=== PATIENT | female | born 1990 | race Caucasian/White ===

== ENCOUNTER → 2023-12-07 06:27 | Day surgery (SDC) | payer BC, SELFPAY | LOC: GI 06:27 | PROVIDERS: ATTENDING PHYSICIAN Internal Medicine; FAMILY PHYSICIAN Physician Assistant Medical | DX: D12.3 Benign neoplasm of transverse colon (principal); K62.5 Hemorrhage of anus and rectum; K63.5 Polyp of colon; K64.4 Residual hemorrhoidal skin tags; Z87.19 Personal history of other diseases of the digestive system | CPT/HCPCS: 45380; 88305 ==

== ENCOUNTER → 2024-07-10 14:48 | Outpatient (REF) | payer BC, SELFPAY | LOC: PNTC 14:48 | PROVIDERS: ATTENDING PHYSICIAN Obstetrics & Gynecology | DX: O99.210 Obesity complicating pregnancy, unspecified trimester (principal); O10.019 Pre-existing essential hypertension complicating pregnancy, unspecified trimester; O35.5XX0 Maternal care for (suspected) damage to fetus by drugs, not applicable or unspecified | CPT/HCPCS: 76805 ==

== ENCOUNTER → 2024-08-15 07:51 | Outpatient (REF) | payer BC, SELFPAY ==
--- NOTE | 2024-08-15 07:57 | PN.DIAED06 ---
Meal Plan - Gestational
- Breakfast
Gestational Diabetes Meal Plan Name: 1800 calories
Breakfast - Total Carbohydrate (grams): 30
Breakfast - Starch Carbohydrate: 1
Breakfast - Fruit Carbohydrate: 0
Breakfast - Milk Carbohydrate: 1
Breakfast - Nonstarchy Vegetables: Yes
Breakfast - Meat/Protein: 1
Breakfast - Fat: 2
- Morning Snack
Morning Snack - Total Carbohydrate (grams): 30
Morning Snack - Starch Carbohydrate: 1
Morning Snack - Fruit Carbohydrate: 0
Morning Snack - Milk Carbohydrate: 1
Morning Snack - Nonstarchy Vegetables: Yes
Morning Snack - Meat/Protein: 0.5
Morning Snack - Fat: 0
- Lunch
Lunch - Total Carbohydrate (grams): 45
Lunch - Starch Carbohydrate: 2
Lunch - Fruit Carbohydrate: 1
Lunch - Milk Carbohydrate: 0
Lunch - Nonstarchy Vegetables: Yes
Lunch - Meat/Protein: 2
Lunch - Fat: 1
- Afternoon Snack
Afternoon Snack - Total Carbohydrate (grams): 30
Afternoon Snack - Starch Carbohydrate: 1
Afternoon Snack - Fruit Carbohydrate: 1
Afternoon Snack - Milk Carbohydrate: 0
Afternoon Snack - Nonstarchy Vegetables: Yes
Afternoon Snack - Meat/Protein: 1
Afternoon Snack - Fat: 0
- Dinner
Dinner - Total Carbohydrate (grams): 45
Dinner - Starch Carbohydrate: 2
Dinner - Fruit Carbohydrate: 0
Dinner - Milk Carbohydrate: 1
Dinner - Nonstarchy Vegetables: Yes
Dinner - Meat/Protein: 2
Dinner - Fat: 2
- Evening Snack
Evening Snack - Total Carbohydrate (grams): 30
Evening Snack - Starch Carbohydrate: 1
Evening Snack - Fruit Carbohydrate: 0
Evening Snack - Milk Carbohydrate: 1
Evening Snack - Nonstarchy Vegetables: Yes
Evening Snack - Meat/Protein: 1
Evening Snack - Fat: 1
--- NOTE | 2024-08-15 15:28 | PN.DE ---
Diabetes Education
- -
Met with Ms. Benitez today, currently at 22 weeks of gestation, here today for medical nutrition therapy.
Explained glucose metabolism in body and what occurs during to cause increase blood sugar. Discussed importance of keeping BS well controlled to avoid complications to the baby during and after (macrosomia, hypoglycemia).
Explained to Irlanda that she is at increased risk of developing T2DM in the future.
Irlanda brought with her the OneTouch glucose meter that was recently rx and she has already started monitoring her blood sugars at home. Reviewed instructions on proper testing technique, testing sites and testing pattern given. She is aware to test
FBS and 2 hr pp each meal. Expected results for FBS <95 mg/dl and 2 hr pp <120 mg/dl. She is aware if testing 1 hr pp, result should be <140 mg/dl. Noted for blood sugar of 88 fasting this morning.
A Log sheet was provided for her to record results, she will send a 4 day meal log with all her FBG and 2hr Post prandial glucose numbers to this office for review.
In addition, she will send all her glucose readings to Imani at [facility] every Sunday.
Discussed macronutrients, provided with 1800 gabby GDM meal plan, she has a good understanding of healthy nutrition and has been eating healthy since finding out that she has GDM with this as well. She has been educated on how to read a
nutritional fact label and look at total CHO in relation to serving size. No fruit or fruit juice until noontime. Provided with handout on snacks as well as 'Choose Your Foods' booklet. Encouraged exercise and increase physical activity during
and encouraged her to reach out should she have any questions or require insulin as her progresses.
== END ==
LOC: DES 07:51
PROVIDERS: ATTENDING PHYSICIAN Obstetrics & Gynecology
DX: O24.419 Gestational diabetes mellitus in pregnancy, unspecified control (principal)
CPT/HCPCS: 99078

== ENCOUNTER → 2024-08-21 08:50 | Outpatient (REF) | payer BC, SELFPAY | LOC: PNTC 08:50 | PROVIDERS: ATTENDING PHYSICIAN Student in an Organized Health Care Education/Training Program | DX: O24.419 Gestational diabetes mellitus in pregnancy, unspecified control (principal) | CPT/HCPCS: 76815 ==

== ENCOUNTER → 2024-08-26 13:49 | Outpatient (REF) | payer BC, SELFPAY | LOC: PNTC 13:49 | PROVIDERS: ATTENDING PHYSICIAN Obstetrics & Gynecology | DX: O24.419 Gestational diabetes mellitus in pregnancy, unspecified control (principal) | CPT/HCPCS: 76811 ==

== ENCOUNTER → 2024-09-23 07:00 | Outpatient (REF) | payer BC, SELFPAY | LOC: PNTC 07:00 | PROVIDERS: ATTENDING PHYSICIAN Obstetrics & Gynecology | DX: O99.210 Obesity complicating pregnancy, unspecified trimester (principal); O16.9 Unspecified maternal hypertension, unspecified trimester; O24.419 Gestational diabetes mellitus in pregnancy, unspecified control; Q27.0 Congenital absence and hypoplasia of umbilical artery | CPT/HCPCS: 76816 ==

== ENCOUNTER → 2024-10-27 16:41 | Outpatient (REF) | payer BC, SELFPAY | LOC: PNTC 16:41 | PROVIDERS: ATTENDING PHYSICIAN Obstetrics & Gynecology | DX: O99.210 Obesity complicating pregnancy, unspecified trimester (principal); O16.9 Unspecified maternal hypertension, unspecified trimester; O24.419 Gestational diabetes mellitus in pregnancy, unspecified control; O69.5XX0 Labor and delivery complicated by vascular lesion of cord, not applicable or unspecified | CPT/HCPCS: 59025; 76816 ==

== ENCOUNTER → 2024-11-03 07:08 | Outpatient (REF) | payer BC, SELFPAY | LOC: PNTC 07:08 | PROVIDERS: ATTENDING PHYSICIAN Obstetrics & Gynecology | DX: O99.210 Obesity complicating pregnancy, unspecified trimester (principal); O10.119 Pre-existing hypertensive heart disease complicating pregnancy, unspecified trimester; O09.529 Supervision of elderly multigravida, unspecified trimester; Q27.0 Congenital absence and hypoplasia of umbilical artery | CPT/HCPCS: 59025; 76815 ==

== ENCOUNTER → 2024-11-10 06:55 | Outpatient (REF) | payer BC, SELFPAY | LOC: PNTC 06:55 | PROVIDERS: ATTENDING PHYSICIAN Obstetrics & Gynecology | DX: O99.210 Obesity complicating pregnancy, unspecified trimester (principal); O10.219 Pre-existing hypertensive chronic kidney disease complicating pregnancy, unspecified trimester; O24.419 Gestational diabetes mellitus in pregnancy, unspecified control; O43.129 Velamentous insertion of umbilical cord, unspecified trimester | CPT/HCPCS: 59025; 76815 ==

== ENCOUNTER → 2024-11-17 06:59 | Outpatient (REF) | payer BC, SELFPAY | LOC: PNTC 06:59 | PROVIDERS: ATTENDING PHYSICIAN Obstetrics & Gynecology | DX: O10.119 Pre-existing hypertensive heart disease complicating pregnancy, unspecified trimester (principal); O99.210 Obesity complicating pregnancy, unspecified trimester; O24.419 Gestational diabetes mellitus in pregnancy, unspecified control; Q27.0 Congenital absence and hypoplasia of umbilical artery | CPT/HCPCS: 59025; 76815 ==

== ENCOUNTER → 2024-11-24 06:50 | Outpatient (REF) | payer BC, SELFPAY | LOC: PNTC 06:50 | PROVIDERS: ATTENDING PHYSICIAN Obstetrics & Gynecology | DX: O99.210 Obesity complicating pregnancy, unspecified trimester (principal); O10.119 Pre-existing hypertensive heart disease complicating pregnancy, unspecified trimester; O24.419 Gestational diabetes mellitus in pregnancy, unspecified control; Q27.0 Congenital absence and hypoplasia of umbilical artery | CPT/HCPCS: 59025; 76816 ==

== ENCOUNTER 2024-11-28 16:04 | Observation (INO) | payer BC, SELFPAY ==
[2024-11-28 16:22] VITALS: BP 131/71; BMI 38.9
[2024-11-28 17:10] LABS: % Basophils 0.3 % (0-2); % Eosinophils 0.3 % (0-6); % Immature Granulocytes 0.9 % (0-0.5); % Lymphocytes 10.4 % (20.5-51.1); % Monocytes 9.7 % (1.7-9.3); % Neutrophils 78.4 % (42.2-75.2); Absolute Immature Granulocytes 0.1 10^3/uL (0-0.05); Absolute Lymphocytes 0.8 10^3/uL (1.2-3.4); Absolute Monocytes 0.7 10^3/uL (0.1-0.6); Absolute Neutrophils 5.9 10^3/uL (1.4-6.5); Hematocrit 33.3 % (37.0-47.0); Hemoglobin 11.7 g/dL (12.0-16.0); Mean Corp Hgb Conc. 35.1 g/dL (33.0-37.0); Mean Corpuscular Volume 82.4 fL (81.0-99.0); Mean Platelet Volume 10.5 fL (7.4-10.4); Nucleated Red Blood Cells % 0 %; Platelet Count 173 10^3/uL (130-400); Red Blood Cell Count 4.04 10^6/uL (4.20-5.40); White Blood Cell Count 7.6 10^3/uL (4.8-10.8)
[2024-11-28 17:23] LABS: ALT (SGPT) 23 U/L (0-35); AST (SGOT) 26 U/L (14-36); Albumin 3.8 g/dl (3.5-5.0); Alkaline Phosphatase 149 U/L (38-126); Blood Urea Nitrogen 11 mg/dl (7-17); Calcium 9.2 mg/dl (8.4-10.2); Carbon Dioxide 20 mmol/L (22-30); Chloride 103 mmol/L (98-107); Estimated Creatinine Clearance 119 ml/min; Glucose 89 mg/dl (70-99); Potassium 4.1 mmol/L (3.5-5.1); Sodium 133 mmol/L (135-145); Total Bilirubin 1.1 mg/dl (0.2-1.3); Total Protein 6.6 g/dl (6.3-8.2); eGFR > 60.00
[2024-11-28 17:25] LABS: Protein/creatinine Ratio 0.2; Urine Protein 13 mg/dl
[2024-11-28] MEDS: LR 1000 IV ×2 (18:06→22:07)
[2024-11-28] MEDS: TYLENOL 1000 MG PO (18:06)
[2024-11-28] MEDS: TAMIFLU 75 MG PO (18:07)
[2024-11-28] MEDS: LEXAPRO 20 MG PO (20:16)
[2024-11-28] MEDS: TRANDATE 100 MG PO (20:16)
[2024-11-28] MEDS: HUMULIN N KWIKPEN 11 UNITS SC (20:17)
[2024-11-28 21:18] LABS: Glucose - Point of Care 93 mg/dl (70-99)
[2024-11-28] MEDS: ZOFRAN 4 MG IV (22:12)
[2024-11-29] MEDS: TYLENOL 1000 MG PO ×2 (00:05→07:50)
[2024-11-29] MEDS: LR 1000 IV (00:45)
[2024-11-29] MEDS: TUMS CHEWABLE TABLET 400 MG PO (01:38)
[2024-11-29] MEDS: PEPCID 20 MG PO (03:41)
[2024-11-29 06:24] LABS: Glucose - Point of Care 101 mg/dl (70-99)
[2024-11-29] MEDS: SYNTHROID 75 MCG PO (06:24)
[2024-11-29] MEDS: ASPIR LOW (ENTERIC COATED) 81 MG PO (07:47)
[2024-11-29] MEDS: TAMIFLU 75 MG PO (07:47)
[2024-11-29] MEDS: TRANDATE 100 MG PO (07:47)
[2024-11-29] MEDS: LEXAPRO 20 MG PO (07:49)
[2024-11-29] MEDS: HUMULIN N KWIKPEN SC (08:30)
[2024-11-29 09:48] LABS: Glucose - Point of Care 110 mg/dl (70-99)
== END 2024-11-29 12:25 | disposition home or self-care (01) ==
LOC: LDRP 16:04
PROVIDERS: ADMITTING PHYSICIAN Obstetrics & Gynecology
DX: O26.893 Other specified pregnancy related conditions, third trimester (principal); J10.1 Influenza due to other identified influenza virus with other respiratory manifestations; O10.913 Unspecified pre-existing hypertension complicating pregnancy, third trimester; O24.414 Gestational diabetes mellitus in pregnancy, insulin controlled; Z3A.37 37 weeks gestation of pregnancy; O99.013 Anemia complicating pregnancy, third trimester; D64.9 Anemia, unspecified; O99.283 Endocrine, nutritional and metabolic diseases complicating pregnancy, third trimester; E03.9 Hypothyroidism, unspecified; O99.343 Other mental disorders complicating pregnancy, third trimester; F41.9 Anxiety disorder, unspecified; E28.2 Polycystic ovarian syndrome; Z79.4 Long term (current) use of insulin; Z79.890 Hormone replacement therapy; O36.8330 Maternal care for abnormalities of the fetal heart rate or rhythm, third trimester, not applicable or unspecified
CPT/HCPCS: 80053; 82570; 82962; 84156; 85025; 86850; 86900; 86901; 87502

== ENCOUNTER 2024-12-03 19:21 | Inpatient (IN) | payer BC, SELFPAY ==
[2024-12-03 19:53] VITALS: BP 133/85; BMI 39.3
[2024-12-03 20:09] LABS: Glucose - Point of Care 103 mg/dl (70-99)
[2024-12-03 20:15] LABS: % Basophils 0.2 % (0-2); % Eosinophils 0.1 % (0-6); % Immature Granulocytes 0.7 % (0-0.5); % Lymphocytes 32.7 % (20.5-51.1); % Monocytes 7.6 % (1.7-9.3); % Neutrophils 58.7 % (42.2-75.2); Absolute Immature Granulocytes 0.1 10^3/uL (0-0.05); Absolute Lymphocytes 2.7 10^3/uL (1.2-3.4); Absolute Monocytes 0.6 10^3/uL (0.1-0.6); Absolute Neutrophils 4.9 10^3/uL (1.4-6.5); Hematocrit 32.8 % (37.0-47.0); Hemoglobin 11.7 g/dL (12.0-16.0); Mean Corp Hgb Conc. 35.7 g/dL (33.0-37.0); Mean Corpuscular Hgb 29.3 pg (27.0-31.0); Mean Corpuscular Volume 82.2 fL (81.0-99.0); Mean Platelet Volume 9.8 fL (7.4-10.4); Nucleated Red Blood Cells % 0 %; Platelet Count 177 10^3/uL (130-400); Red Blood Cell Count 3.99 10^6/uL (4.20-5.40); Red Cell Dist. Width 12.8 % (11.5-14.5); White Blood Cell Count 8.3 10^3/uL (4.8-10.8)
[2024-12-03 20:33] LABS: ALT (SGPT) 41 U/L (0-35); AST (SGOT) 38 U/L (14-36); Albumin 2.9 g/dl (3.5-5.0); Alkaline Phosphatase 168 U/L (38-126); Blood Urea Nitrogen 16 mg/dl (7-17); Calcium 10.2 mg/dl (8.4-10.2); Carbon Dioxide 24 mmol/L (22-30); Chloride 104 mmol/L (98-107); Estimated Creatinine Clearance 93 ml/min; Glucose 96 mg/dl (70-99); Potassium 4.3 mmol/L (3.5-5.1); Sodium 133 mmol/L (135-145); Total Bilirubin 0.4 mg/dl (0.2-1.3); Total Protein 5.5 g/dl (6.3-8.2); eGFR > 60.00
[2024-12-03] MEDS: CYTOTEC 25 MICROGRAM VAG (20:41)
[2024-12-03 20:42] LABS: Protein/creatinine Ratio 0.3; Urine Protein 13 mg/dl
[2024-12-03] MEDS: TRANDATE 100 MG PO (20:47)
[2024-12-03] MEDS: LEXAPRO 20 MG PO (22:24)
[2024-12-03] MEDS: PEPCID 20 MG PO (22:24)
[2024-12-04] MEDS: CYTOTEC 50 MICROGRAM PO ×2 (00:33→04:42)
[2024-12-04 00:36] LABS: Glucose - Point of Care 117 mg/dl (70-99)
[2024-12-04] MEDS: SYNTHROID 75 MCG PO (05:59)
[2024-12-04 06:00] LABS: Glucose - Point of Care 79 mg/dl (70-99)
[2024-12-04 06:14] LABS: Hematocrit 34.2 % (37.0-47.0); Hemoglobin 11.9 g/dL (12.0-16.0); Mean Corp Hgb Conc. 34.8 g/dL (33.0-37.0); Mean Corpuscular Hgb 28.7 pg (27.0-31.0); Mean Corpuscular Volume 82.4 fL (81.0-99.0); Mean Platelet Volume 9.9 fL (7.4-10.4); Platelet Count 179 10^3/uL (130-400); Red Blood Cell Count 4.15 10^6/uL (4.20-5.40); Red Cell Dist. Width 12.8 % (11.5-14.5); White Blood Cell Count 8.6 10^3/uL (4.8-10.8)
[2024-12-04 06:41] LABS: ALT (SGPT) 47 U/L (0-35); AST (SGOT) 41 U/L (14-36); Alkaline Phosphatase 170 U/L (38-126); Blood Urea Nitrogen 13 mg/dl (7-17); Calcium 8.9 mg/dl (8.4-10.2); Carbon Dioxide 24 mmol/L (22-30); Chloride 102 mmol/L (98-107); Estimated Creatinine Clearance 93 ml/min; Glucose 78 mg/dl (70-99); Potassium 4.2 mmol/L (3.5-5.1); Sodium 133 mmol/L (135-145); Total Bilirubin 0.6 mg/dl (0.2-1.3); Total Protein 5.5 g/dl (6.3-8.2); eGFR > 60.00
[2024-12-04] MEDS: LR 1000 IV ×2 (08:37→11:13)
[2024-12-04] MEDS: FEOSOL 325 MG PO (08:37)
[2024-12-04] MEDS: TRANDATE 100 MG PO ×2 (08:37→20:17)
[2024-12-04 10:04] LABS: Glucose - Point of Care 87 mg/dl (70-99)
[2024-12-04] MEDS: CYTOTEC PO ×2 (10:39→15:44)
[2024-12-04] MEDS: PITOCIN 30 UNITS/NSS 500 ML IV ×2 (10:47→16:15)
[2024-12-04 12:06] LABS: Glucose - Point of Care 79 mg/dl (70-99)
[2024-12-04] MEDS: D5LR 500 IV (13:15)
[2024-12-04 14:21] LABS: Glucose - Point of Care 99 mg/dl (70-99)
[2024-12-04] MEDS: ANCEF 10 IV (15:18)
[2024-12-04] MEDS: TYLENOL 1000 MG PO (15:18)
[2024-12-04] MEDS: BICITRA 30 ML PO (15:18)
[2024-12-04] MEDS: ZITHROMAX INFUSION 250 IV (15:25)
[2024-12-04 16:07] LABS: Cord ABG Comment CORD BLOOD
[2024-12-04 16:08] LABS: B.E. Cord ABG -2.3 mMOL/L; HCO3 Cord ABG 24.2 mmol/L; O2 Saturation % Cord ABG 48.5 %; PCO2 Cord ABG 47 mmHg; PO2 Cord ABG 22 mmHg; pH Cord ABG 7.32
[2024-12-04 16:11] LABS: B.E. Cord ABG -1.6 mMOL/L; HCO3 Cord ABG 26.9 mmol/L; O2 Saturation % Cord ABG 14.1 %; PCO2 Cord ABG 60 mmHg; PO2 Cord ABG 9 mmHg; pH Cord ABG 7.26
[2024-12-04] MEDS: CYTOTEC 800 MCG RECTAL (16:18)
[2024-12-04] MEDS: TORADOL 15 MG IV (20:18)
[2024-12-04] MEDS: PEPCID 20 MG PO (22:25)
[2024-12-04] MEDS: LEXAPRO 20 MG PO (22:25)
[2024-12-05] MEDS: TORADOL 15 MG IV ×3 (02:30→14:10)
[2024-12-05 04:13] LABS: Hematocrit 28.6 % (37.0-47.0); Hemoglobin 10.1 g/dL (12.0-16.0); Mean Corp Hgb Conc. 35.3 g/dL (33.0-37.0); Mean Corpuscular Hgb 28.9 pg (27.0-31.0); Mean Corpuscular Volume 81.7 fL (81.0-99.0); Mean Platelet Volume 10.3 fL (7.4-10.4); Platelet Count 182 10^3/uL (130-400); Red Cell Dist. Width 12.5 % (11.5-14.5); White Blood Cell Count 13.9 10^3/uL (4.8-10.8)
[2024-12-05 04:46] LABS: ALT (SGPT) 118 U/L (0-35); AST (SGOT) 115 U/L (14-36); Albumin 2.5 g/dl (3.5-5.0); Alkaline Phosphatase 145 U/L (38-126); Blood Urea Nitrogen 15 mg/dl (7-17); Calcium 8.1 mg/dl (8.4-10.2); Carbon Dioxide 22 mmol/L (22-30); Chloride 101 mmol/L (98-107); Estimated Creatinine Clearance 105 ml/min; Glucose 140 mg/dl (70-99); Potassium 4.1 mmol/L (3.5-5.1); Sodium 128 mmol/L (135-145); Total Bilirubin 0.5 mg/dl (0.2-1.3); Total Protein 4.9 g/dl (6.3-8.2); eGFR > 60.00
[2024-12-05] MEDS: SYNTHROID 50 MCG PO (05:59)
[2024-12-05 07:09] LABS: ALT (SGPT) 119 U/L (0-35); AST (SGOT) 116 U/L (14-36)
--- NOTE | 2024-12-05 08:05 | W.PN.ANS.POP ---
Anesthesia Post Operative
- Anesthesia Post Op Note
Vital Signs Stable-See Nursing Note: Yes
Airway Patent: Yes
Adequate Pain Control: Yes
Change in Mental Status: No
Current Postoperative Nausea & Vomiting: No
Anesthesia Complications: No
General Anesthetic Recall: No
Unplanned Admission: No
Post Op Hydration Adequate: Yes
[2024-12-05] MEDS: FEOSOL 325 MG PO (08:16)
[2024-12-05] MEDS: FLUSH (NSS) 2 FLUSH IV (08:16)
[2024-12-05] MEDS: TRANDATE 100 MG PO ×2 (08:16→20:01)
[2024-12-05 10:53] LABS: Syphilis/T. pallidum Ab Reflex Negative (Negative)
[2024-12-05] MEDS: MAGNESIUM SULFATE 100 IV (11:21)
[2024-12-05] MEDS: MAGNESIUM SULFATE 40 GRAM 1000 IV (11:42)
[2024-12-05] MEDS: LR 1000 IV ×2 (12:15→23:59)
[2024-12-05] MEDS: TYLENOL 650 MG PO (20:01)
[2024-12-05] MEDS: MOTRIN 600 MG PO (20:01)
[2024-12-05] MEDS: PEPCID 20 MG PO (21:58)
[2024-12-05] MEDS: LEXAPRO 20 MG PO (21:58)
[2024-12-06] MEDS: MOTRIN 600 MG PO ×3 (02:08→20:20)
[2024-12-06] MEDS: TYLENOL 650 MG PO ×2 (02:08→09:36)
[2024-12-06 05:14] LABS: Hematocrit 27.2 % (37.0-47.0); Hemoglobin 9.2 g/dL (12.0-16.0); Mean Corp Hgb Conc. 33.8 g/dL (33.0-37.0); Mean Corpuscular Volume 85.8 fL (81.0-99.0); Mean Platelet Volume 10.1 fL (7.4-10.4); Platelet Count 175 10^3/uL (130-400); Red Blood Cell Count 3.17 10^6/uL (4.20-5.40); White Blood Cell Count 8.2 10^3/uL (4.8-10.8)
[2024-12-06 05:41] LABS: ALT (SGPT) 126 U/L (0-35); AST (SGOT) 96 U/L (14-36); Albumin 2.4 g/dl (3.5-5.0); Alkaline Phosphatase 153 U/L (38-126); Blood Urea Nitrogen 12 mg/dl (7-17); Calcium 6.4 mg/dl (8.4-10.2); Carbon Dioxide 28 mmol/L (22-30); Chloride 105 mmol/L (98-107); Estimated Creatinine Clearance 105 ml/min; Glucose 101 mg/dl (70-99); Potassium 4.4 mmol/L (3.5-5.1); Sodium 134 mmol/L (135-145); Total Bilirubin 0.2 mg/dl (0.2-1.3); Total Protein 4.8 g/dl (6.3-8.2); eGFR > 60.00
[2024-12-06] MEDS: SYNTHROID 75 MCG PO (06:01)
[2024-12-06] MEDS: MAGNESIUM SULFATE 40 GRAM 1000 IV (07:19)
[2024-12-06] MEDS: SENOKOT-S 1 TABLET PO (09:36)
[2024-12-06] MEDS: TRANDATE 100 MG PO ×2 (09:38→20:11)
[2024-12-06] MEDS: PEPCID 20 MG PO (20:11)
[2024-12-06] MEDS: LEXAPRO 20 MG PO (20:14)
[2024-12-07] MEDS: MOTRIN 600 MG PO (02:28)
[2024-12-07] MEDS: TRANDATE 100 MG PO (08:10)
[2024-12-07] MEDS: SENOKOT-S 1 TABLET PO (08:10)
[2024-12-07 09:33] LABS: ALT (SGPT) 123 U/L (0-35); AST (SGOT) 84 U/L (14-36)
--- NOTE | 2024-12-07 10:13 | W.DS.TRANS ---
DC Summary - [employer]
-
Discharge Instructions:
Discharge Diagnosis/Procedures primary cs, chtn, gdm
Blood Work check lfts end of week
Instructions:
Stand-Alone Forms: LDRP Delivery
LDRP Hypertensive Disorders
Changes to Home Medications: No
Discharge Medications:
DC Medications w/original date entered in [facility]
escitalopram oxalate 20 mg tablet 20 mg PO DAILY Depression 11/28/24
ferrous sulfate 325 mg (65 mg iron) tablet 325 mg PO Q OTHER DAY Supplement 11/28/24
labetalol 100 mg tablet 100 mg PO BID Blood Pressure 11/28/24
levothyroxine 50 mcg tablet 50 mcg PO Q OTHER DAY Thyroid 11/28/24
levothyroxine 75 mcg capsule (Tirosint) 75 mcg PO Q OTHER DAY Thyroid 11/28/24
famotidine 20 mg tablet 20 mg PO DAILY Gastrointestinal Issue 12/03/24
ibuprofen 600 mg tablet 600 mg PO Q6HPRN PRN cramps #90 tabs 12/07/24
Home Medication Changes
Pending Results: Yes
Additional Pending Results:
ua c and s
Total time spent discharging patient (in min): 20
[2024-12-07 11:19] LABS: Urine Albumin Negative (Neg - Trace); Urine Bilirubin Negative (Negative); Urine Character Clear (Clear); Urine Color Yellow; Urine Glucose Negative (Negative); Urine Ketone Negative (Negative); Urine Leukocyte Negative (Negative); Urine Nitrite Negative (Negative); Urine Occult Blood 4+ (Negative); Urine Urobilinogen Negative (Neg - 1+)
[2024-12-07 11:30] LABS: Urine Bacteria Few (Negative); Urine Red Blood Cell 26-30 /HPF (0-2); Urine Squamous Cell >30 /LPF (Few); Urine White Cell 0-2 /HPF (0-5)
[2024-12-07] MEDS: M-M-R II 0.5 ML SC (12:59)
[2024-12-07] MEDS: SYNTHROID PO (13:12)
== END 2024-12-07 13:30 | disposition home or self-care (01) | DRG 788 ==
LOC: LDRP 19:21
PROVIDERS: Obstetrics & Gynecology; ADMITTING PHYSICIAN Student in an Organized Health Care Education/Training Program; FAMILY PHYSICIAN Physician Assistant Medical
PROC: 3E0P7VZ Introduction of Hormone into Female Reproductive, Via Natural or Artificial Opening (ICD-10-PCS; 2024-12-03)
PROC: 3E033VJ Introduction of Other Hormone into Peripheral Vein, Percutaneous Approach (ICD-10-PCS; 2024-12-04)
PROC: 10D00Z1 Extraction of Products of Conception, Low, Open Approach (ICD-10-PCS; 2024-12-04)
PROC: 3E0234Z Introduction of Serum, Toxoid and Vaccine into Muscle, Percutaneous Approach (ICD-10-PCS; 2024-12-04)
DX: O11.4 Pre-existing hypertension with pre-eclampsia, complicating childbirth (principal); Z3A.38 38 weeks gestation of pregnancy; Z37.0 Single live birth; O69.81X0 Labor and delivery complicated by cord around neck, without compression, not applicable or unspecified; O76 Abnormality in fetal heart rate and rhythm complicating labor and delivery; O69.89X0 Labor and delivery complicated by other cord complications, not applicable or unspecified; Z23 Encounter for immunization; O75.89 Other specified complications of labor and delivery; O24.424 Gestational diabetes mellitus in childbirth, insulin controlled; O99.344 Other mental disorders complicating childbirth; F41.9 Anxiety disorder, unspecified; F32.A Depression, unspecified; O99.214 Obesity complicating childbirth
CPT/HCPCS: 88307; 80053; 81003; 81015; 82570; 82803; 82962; 84156; 84450; 84460; 85025; 85027; 86780; 86850; 86900; 86901; 87086; 90707